=== PATIENT | female | born 1985 | race Caucasian/White ===

== ENCOUNTER → 2021-01-20 09:17 | Outpatient (CLI) | payer MEDICARE, MEDICAID, SELFPAY ==
--- NOTE | ~2021-01-20 | XR_ITS ---
EXAMINATION: XR chest 2V 01/20/2021 09:44 INDICATION: Chronic pain PROCEDURE: 2 view chest COMPARISON: No prior studies for comparison. FINDINGS: The lungs are clear. The cardiomediastinal silhouette is within normal limits. There are no pleural effusions. There is no pneumothorax suspected. IMPRESSION: 1: NO ACUTE CARDIOPULMONARY DISEASE. Reviewed, dictated and finalized at location B.
--- NOTE | ~2021-01-20 | XR_ITS ---
EXAMINATION: XR cervical spine 4-5V EXAM DATE: 01/20/2021 09:44 INDICATION: Posterior neck pain for a year. TECHNIQUE: Cervical spine frontal, lateral, lateral swimmers, and open-mouth odontoid projections. There is no prior study for comparison. FINDINGS: There is mild reversal of the normal cervical lordosis which may be positional or spasm. M ild disc disease at C5-6. Evidence of only mild cervical arthropathy. There is no evidence of acute c ervical fracture. The odontoid process is intact. Pre-dens space is normal. Prevertebral soft tiss ue is normal. There are no soft tissue abnormalities identified. The vertebral bodies are aligned. IMPRESSION: 1. Mild reversal cervical lordosis, could be positional or spasm. 2. Mild spondylosis. Reviewed, dictated and finalized at location A.
== END ==
PROVIDERS: PCP Family Medicine; Visit Provider Family Medicine
DX: M54.2 Cervicalgia (principal); M53.82 Other specified dorsopathies, cervical region; M47.812 Spondylosis without myelopathy or radiculopathy, cervical region
CPT/HCPCS: 71046; 72050

== ENCOUNTER 2021-10-30 08:56 | Emergency (ER) | payer MEDICARE, SELFPAY ==
[2021-10-30 09:07] VITALS: BP 125/72; PULSE 93; RESP 20; TEMP 36.8; O2SAT 100
--- NOTE | 2021-10-30 09:32 | ED.URI ---
HPI - URI/Sore Throat General Chief Complaint: Upper Respiratory Infection Stated Complaint: Cough/Congestion/ Shortness of Breath Time Seen by Provider: 10/30/21 09:27 Source: patient and RN notes reviewed Mode of arrival: ambulatory History of Present Illness HPI Narrative: This is a 36-year-old female that presented to urgent care with complaints of loss of smell and taste, shortness of breath body aches, congestion, cough and a sore throat. Patient notes that she has come in contact with several people's that tested positive for Covid. According to patient her symptoms started yesterday. The patient denies CP, palpitation, extremity numbness, lightheadedness, dizziness, constipation, diarrhea, chills, or fever. Related Data Home Medications Medication Instructions Recorded Confirmed gabapentin 10/30/21 lithium carbonate mg PO 10/30/21 Allergies Allergy/AdvReac Type Severity Reaction Status Date / Time No Known Allergies Allergy Verified 10/30/21 09:19 Review of Systems Review of Systems: A 14 organ system Review of Systems was performed and pertinent positives included in the HPI, otherwise remaining ROS is negative. [facility] Family History Family History (Updated 10/30/21 @ 09:33 by DEBBIE Penny-C) Other Family history non-contributory Exam Narrative: GENERAL: This is a well-nourished, well-developed patient, in no apparent distress. HEAD: normocephalic, atraumatic. EYES: PERRL. Sclera clear/white. Vision is grossly intact. EARS: External ears normal, auditory canals clear and without drainage, TMs normal without perforation. Hearing grossly intact. NOSE: External nose normal with no obvious nasal discharge, nares without redness, no rhinorrhea. THROAT: Mucous membranes moist, posterior pharynx edema with erythematous. NECK: Neck supple, non-tender without lymphadenopathy, masses or thyromegaly. CARDIOVASCULAR: Regular rate and rhythm without murmurs, gallops, or rubs. RESPIRATORY: Clear to auscultation. Breath sounds equal bilaterally. No wheezes, rales, or rhonchi. GASTROINTESTINAL: Abdomen soft, non-tender, nondistended. Bowel sounds are active. No hepato-splenomegaly, or palpable masses. No guarding. SKIN: warm, intact with no suspicious lesions or rash, good texture and turgor. NEURO: awake, alert, and oriented to person, place and time. There were no obvious focal neurologic abnormalities. Steady gait EXTREMITIES: Normal range of motion. No edema. No calf tenderness. Negative Homans sign bilaterally. BACK: Nontender without deformity or crepitance. No flank tenderness. Course Course Emergency Course: Patient will receive a Covid send out. Will be discharged home with albuterol, Tessalon Perles, Flonase, Claritin and guaifenesin Level of Care: Express Care Visit Vital Signs Vital signs: Vital Signs Temperature 98.3 F 10/30/21 09:07 Pulse Rate 93 10/30/21 09:07 Respiratory Rate 20 10/30/21 09:07 Blood Pressure 125/72 10/30/21 09:07 Pulse Oximetry 100 10/30/21 09:07 Temperature 98.3 F 10/30/21 09:07 Pulse Rate 93 10/30/21 09:07 Respiratory Rate 20 10/30/21 09:07 Blood Pressure 125/72 10/30/21 09:07 Pulse Oximetry 100 10/30/21 09:07 MDM - URI/Sore Throat Differential Diagnosis Differential diagnosis: Likely upper respiratory infection, otitis media, sinusitis, viral infection and influenza Discharge Plan Discharge Clinical Impression: Viral infection Patient Disposition: Home, Self-Care Condition: Stable Instructions: Antibiotic Form, Viral Syndrome (ED) Additional Instructions: What care is needed at home? Ask your doctor what you need to do when you go home. Make sure you ask questions if you do not understand what the doctor says. This way you will know what you need to do. Make breathing easier: Use a cool mist humidifier in your bedroom. This will add moisture to the room. Raise the head of your bed or sleep with your he
[2021-10-31 22:11] LABS: SARS-CoV-2 RNA PCR Positive
== END 2021-10-30 09:40 | disposition home or self-care (01) ==
PROVIDERS: Nurse Practitioner Family; Emergency Provider Nurse Practitioner
DX: U07.1 COVID-19 (principal)
CPT/HCPCS: 99213; C9803; G0463; U0003; U0005

== ENCOUNTER 2022-10-05 17:14 | Emergency (ER) | payer MEDICARE, SELFPAY ==
[2022-10-05 17:20] VITALS: BP 127/72; PULSE 100; RESP 16; TEMP 36.9; O2SAT 100
--- NOTE | 2022-10-05 17:20 | ED.EAR ---
HPI - Ear Problem General Chief complaint: Ear Stated complaint: left ear clogged Time Seen by Provider: 10/05/22 17:42 Source: patient and RN notes reviewed Mode of arrival: ambulatory Limitations: no limitations History of Present Illness HPI Narrative: 37-year-old female presents concern for left ear fullness. Reports that feels clogged. Reports she had a recent sinus infection a month ago, reports that has been resolved but she has not been taking any sinus decongestants recently. For she has been using [id number] ear drops Vera vang MD Complaint: ear pain Related Data Home Medications Medication Instructions Recorded Confirmed gabapentin 600 mg tablet 10/30/21 lithium carbonate 450 mg mg PO 10/30/21 tablet,extended release Allergies Allergy/AdvReac Type Severity Reaction Status Date / Time No Known Allergies Allergy Verified 10/30/21 09:19 Review of Systems Review of Systems: CONSTITUTIONAL: Denies malaise, chills, sweats, or fever. EYES: Denies visual changes, redness, or discharge. ENT: Denies rhinorrhea, congestion, sinus pain, and sore throat. Reports left ear pain and feeling clogged CARDIOVASCULAR: Denies chest pain, palpitations, or edema. RESPIRATORY: Denies cough. Denies dyspnea. GASTROINTESTINAL: Denies abdominal pain, nausea, vomiting, diarrhea SKIN: Denies rash or itching. MUSCULOSKELETAL: Denies myalgia. NEUROLOGIC: Denies headache. All systems reviewed & are unremarkable except as noted in HPI and below PMFSH Family History Family History (Updated 10/30/21 @ 09:33 by BRANDON Penny) Other Family history non-contributory Comments At time of signature, agree with nursing past medical, surgical, social and family history. There is no relevant family history pertinent to the presenting complaint Exam Narrative: GENERAL: Well-appearing, well-nourished, and in no acute distress. HEAD: Normocephalic EYES: PERRLA, conjunctivae clear ENT: Nares clear. Mucous membranes moist. TM not visible bilaterally due to excess cerumen; no tragal tenderness. Oropharynx not erythematous without lesions. Tonsils not enlarged and without exudate, no drooling, no hoarseness, no trismus, uvula midline. NECK: Supple. No lymphadenopathy CHEST: No respiratory distress, speaks in full sentences. HEART: Regular rate and rhythm. No murmur heard. SKIN: Warm, dry, no rash. NEURO: Alert and oriented x3. PSYCH: Normal mood and affect Course Course Emergency Course: Patient is aware of diagnosis, understands and agrees to treatment plan. Anticipatory guidance given. Patient agrees to follow-up as directed and is aware of reasons to seek care at the emergency department. Portions of this record may have been created with voice recognition software Level of Care: Express Care Visit Vital Signs Vital signs: Vital Signs Temperature 98.5 F 10/05/22 17:20 Pulse Rate 100 10/05/22 17:20 Respiratory Rate 16 10/05/22 17:20 Blood Pressure 127/72 10/05/22 17:20 Pulse Oximetry 100 10/05/22 17:20 Oxygen Delivery Room Air 10/05/22 17:20 Temperature 98.5 F 10/05/22 17:20 Pulse Rate 100 10/05/22 17:20 Respiratory Rate 16 10/05/22 17:20 Blood Pressure 127/72 10/05/22 17:20 Pulse Oximetry 100 10/05/22 17:20 Oxygen Delivery Room Air 10/05/22 17:20 Reviewed. Procedures Ear Wax Removal Left Ear: Ear Wax Removal Date: 10/05/22 Ear Wax Removal Time: 17:50 Cerumenolytic Used: other (Hydrogen peroxide) Results: Re-examined: cerumen removed completely TM Examination: TM(s) intact, normal appearance (Dull with effusion) Ear Canal Exam: atraumatic Patient Tolerated Procedure: well Complications: no problems Technique: ear canal irrigated Medical Decision Making MDM Narrative Medical decision making narrative: Differential diagnosis considered: Qiu virus, strep pharyngitis, allergic rhinitis, upper resp
== END 2022-10-05 18:06 | disposition home or self-care (01) ==
PROVIDERS: Emergency Provider Nurse Practitioner; PCP Physician Assistant
DX: H61.22 Impacted cerumen, left ear (principal)
CPT/HCPCS: 69209; 99213; G0463